=== PATIENT | female | born 1940 | race Caucasian/White ===

== ENCOUNTER → 2017-08-14 | Outpatient (CLI) | payer MEDICARE ==
[~2017-08-14] MED LIST: ASPI81TA94 PO; BUPR300T56 PO; BUSP15TA69 PO; CARV12.578 PO; MULT-1102 PO; NAPR-744 PO; OMEG-36 PO; OMEP-137 PO; TRAZ-156 PO
[2017-08-14 08:25] LABS: PLATELET COUNT, AUTOMATED 334 K/uL (150-450)
[2017-08-14 09:28] LABS: LDL CHOLESTEROL 77 mg/dl
== END ==
LOC: LAB 08:09
PROVIDERS: ATTEND Emergency Medicine
DX: I48.91 Unspecified atrial fibrillation (principal); E66.9 Obesity, unspecified
CPT/HCPCS: 36415; 82040; 82247; 82310; 82374; 82435; 82465; 82565; 82947; 83718; 84075; 84132; 84155; 84295; 84443; 84450; 84460; 84478; 84520; 85025

== ENCOUNTER → 2017-08-15 | Outpatient (CLI) | payer MEDICARE ==
--- NOTE | 2017-08-15 10:08 | RADIOLOGY IMAGING REPORT ---
FACILITY: [facility] PATIENT NAME: Nidia Kim : 1940 MR: [id number] V: [id number] EXAM DATE: ORDERING PHYSICIAN: CIRO STEPHEN TECHNOLOGIST: Location: [facility] [place] Patient: Nidia Kim : 1940 Visit/Account:[id number] Date of Sevice: 08/15/2017 BONE MINERAL DENSITY HISTORY: postmenopausal COMPARISON: None. FINDINGS: LUMBAR SPINE: Bone mineral density (BMD) measured from L1-L4 correlates with a Z-score of 1.1 and a T-score of 0.0 which is normal as defined by the World Health Organization. The corresponding risk of fracture in t he lumbar spine is not increased compared with a young adult reference population. HIP: Bone mineral density (BMD) measured in the left hip or femoral neck region correlates with a Z-score of 0.6 and a T-score of -0.9 which is normal as defined by the World Health Organization. The corre sponding risk of fracture in the hip is not increased compared with a young adult reference populatio n. Bone mineral density (BMD) measured in the left Femoral Neck region measures 0.911 g/cm2. IMPRESSION: 1. Lumbar spine: Normal. 2. Left Hip: Normal. 3. Left Femoral Neck: Bone Mineral Density is 0.911 g/cm2. FRAX? WHO Fracture Risk Assessment Tool link: <http://www.shef.ac.uk/FRAX/tool.jsp?locationValue=9> PLEASE NOTE: 1) The World Health Organization defines low BMD as follows: T-score Normal > -1 Osteopenia < -1 and > -2.5 Osteoporosis < -2.5 without fractures Established osteoporosis < -2.5 with fractures 2) In general, you may wish to consider: Diagnosis Treatment Follow-up DEXA Normal BMD Prevention 2-3 years Osteopenia Prevention/therapy 1-2 years Osteoporosis Therapy Yearly 3) Fracture risk estimated from the T-score is more accurate for vertebral fractures (often spontane ous) than for hip fractures. Report Dictated By: Kevin Olivares at 08/15/2017 10:02 AM Report E-Signed By: Kevin Olivares at 08/15/2017 10:03 AM WSN:JOSE LUIS
== END ==
LOC: CT 07:04
PROVIDERS: ATTEND Emergency Medicine
DX: I48.91 Unspecified atrial fibrillation (principal); Z78.0 Asymptomatic menopausal state
CPT/HCPCS: 77080

== ENCOUNTER → 2017-10-30 | Outpatient (CLI) | payer MEDICARE ==
[~2017-10-30] MED LIST changes: +ROSU20TA13 PO
--- NOTE | 2017-10-31 10:28 | RADIOLOGY IMAGING REPORT ---
FACILITY: [facility] [place] PATIENT NAME: EMELI PINEDA : [id number] MR: [id number] V: [id number] EXAM DATE: [id number] ORDERING PHYSICIAN: CIRO STEPHEN TECHNOLOGIST: Merna Bustillo PROCEDURE:BILATERAL DIGITAL SCREENING MAMMOGRAM WITH CAD ASSISTED INTERPRETATION & 3D TOMOSYNTHESIS COMPARISON:Prior mammograms 10/10/16, 10/18/15, 05/07/14, 05/06/13, 05/05/12. INDICATIONS:screening FINDINGS: There is prominent fatty replacement throughout the breasts. The parenchymal pattern has remained stable allowing for difference in mammographic technique & patient positioning. There is no evidence of malignant appearing mass, malignant appearing calcifications or other secondary sign of malignancy in either breast. DIAGNOSTIC CATEGORY 1--NEGATIVE. RECOMMENDATIONS: ROUTINE MAMMOGRAM AND CLINICAL EVALUATION. IMPRESSION: BIRADS 1: Negative No significant abnormality is seen. Dictated by: Francy Lalmas M.D. on 10/30/2017 at 16:15 Transcribed by: AVNI on 10/30/2017 at 16:19 Approved by: Francy Llamas M.D. on 10/31/2017 at 10:27 [facility]
== END ==
LOC: MAMO 01:19
PROVIDERS: ATTEND Emergency Medicine
DX: Z12.31 Encounter for screening mammogram for malignant neoplasm of breast (principal)
CPT/HCPCS: 77063; 77067

== ENCOUNTER 2017-11-08 05:28 | Emergency (ER) | payer MEDICARE ==
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
[2017-11-08] MEDS ORDERED: CETI-176 PO (05:38)
[2017-11-08] MEDS ORDERED: ASPIRIN 81 MG CHEW PO ONE (05:45)
[2017-11-08 06:00] LABS: PLATELET COUNT, AUTOMATED 271 K/uL (150-450)
--- NOTE | 2017-11-08 06:06 | EKG ---
FACILITY: [facility] - [place] PATIENT NAME: EMELI PINEDA : [id number] MR: [id number] V: [id number] EXAM DATE: ORDERING PHYSICIAN: CEDRICK PEDROZA TECHNOLOGIST: DALE Test Reason : CHEST HEAVYNESS - Blood Pressure : / mmHG Vent. Rate : 063 BPM Atrial Rate : 063 BPM P-R Int : 216 ms QRS Dur : 076 ms QT Int : 422 ms P-R-T Axes : 075 019 035 degrees QTc Int : 431 ms Sinus rhythm with 1st degree AV block Otherwise normal ECG No previous ECGs available Confirmed by JOBY RCAIG ([id number]) on 11/08/2017 1:03:04 PM Referred By: Confirmed By:JOBY CRAIG
--- NOTE | 2017-11-08 06:25 | RADIOLOGY IMAGING REPORT ---
FACILITY: [facility] [place] PATIENT NAME: Nidia Kim : 1940 MR: [id number] V: [id number] EXAM DATE: ORDERING PHYSICIAN: CEDRICK PERDOZA TECHNOLOGIST: [place] [facility] [place] : 1940 Visit/Account:[id number] Date of Sevice: 11/08/2017 SINGLE AP RADIOGRAPH OF THE CHEST 11/08/2017 6:03 AM. INDICATION: Atrial fibrillation, discomfort. COMPARISON: None. FINDINGS: Lungs are well-expanded. There is no consolidation. No pleural effusion or pneumothorax. Heart size i s normal. IMPRESSION: No acute abnormality. Report Dictated By: Antonio Medel MD at 11/08/2017 6:19 AM Report E-Signed By: Antonio Medel MD at 11/08/2017 6:20 AM WSN:[id number]
[2017-11-08 09:00] VITALS: BP 124/70
== END 2017-11-08 09:37 | disposition home or self-care (01) ==
LOC: ER 05:59
DX: R07.89 Other chest pain (principal); R06.00 Dyspnea, unspecified; I48.2 Chronic atrial fibrillation
CPT/HCPCS: 36415; 71045; 83880; 84484; 85025; 85379; 93005; 99284; A9270; 82040; 82247; 82310; 82374; 82435; 82565; 82947; 84075; 84132; 84155; 84295; 84450; 84460; 84520

== ENCOUNTER → 2017-11-15 | Outpatient (CLI) | payer MEDICARE ==
[~2017-11-15] MED LIST changes: +CETI-176 PO
== END ==
LOC: RESP 19:51
PROVIDERS: ATTEND Emergency Medicine
DX: G47.33 Obstructive sleep apnea (adult) (pediatric) (principal); G47.37 Central sleep apnea in conditions classified elsewhere; G47.36 Sleep related hypoventilation in conditions classified elsewhere; E66.9 Obesity, unspecified

== ENCOUNTER → 2017-11-28 | Outpatient (CLI) | payer MEDICARE ==
--- NOTE | 2017-11-29 17:27 | RADIOLOGY IMAGING REPORT ---
FACILITY: [facility] PATIENT NAME: EMELI PINEDA : [id number] MR: [id number] V: [id number] EXAM DATE: [id number] ORDERING PHYSICIAN: CIRO STEPHEN TECHNOLOGIST: Mara Francis RDMS(ABD,OBGYN,BR),RVT EXAMINATION:TWO-DIMENSIONAL ECHOCARDIOGRAPH REASON:CHEST PAIN 2D Measurements (normal values in centimeters) LV endLV endRV endVent.LV PostAorticLeftPercent DiastolicSystolicDiastolicSeptumWallRootAtriumShortening (3.5-5.7)(0.9-2.6)(0.6-1.1)(0.6-1.1)(2.0-3.7)(1.9-4.0)(25-35%) [id number]% STROKE VOLUME: 69ml ESTIMATED EJECTION FRACTION:64% LEFT VENTRICLE: Normal size & function, ejection fraction 60-65%. Normal diastolic function. RIGHT VENTRICLE: Normal size & function. RIGHT ATRIUM: Normal size. LEFT ATRIUM: Mildly dilated, no evidence of intra atrial shunting by Color flow Doppler. AORTIC VALVE: Trileaflet, no stenosis, mild aortic regurgitation. PULMONIC VALVE: Poorly visualized, no significant stenosis or regurgitation noted. MITRAL VALVE: Normal structure & function, trace regurgitation, no stenosis. TRICUSPID VALVE: Normal structure & function, trace regurgitation. RVSP estimated at 30mm Hg. PERICARDIUM: No evidence of pericardial effusion. EXTRACARDIAC SPACE: No evidence of pleural effusion. GREAT VESSELS: Aorta appears to be normal size with no dilation or aneurysm. OVERALL IMPRESSION: 1. Ejection fraction 60-65%. 2. Mild aortic regurgitation. 3. Contrast was used to enhance endocardial definition. Dictated by: Bo Caal M.D. on 11/28/2017 at 15:51 Transcribed by: JADEN on 11/29/2017 at 6:56 Approved by: Bo Caal M.D. on 11/29/2017 at 17:26 [facility]
== END ==
LOC: US 00:32
PROVIDERS: ATTEND Emergency Medicine
DX: I35.0 Nonrheumatic aortic (valve) stenosis (principal)
CPT/HCPCS: C8929; Q9957

== ENCOUNTER → 2017-12-10 | Outpatient (CLI) | payer MEDICARE ==
[~2017-12-10] MED LIST changes: +REGADENOSON 0.4 MG/5 ML SYR ONE
--- NOTE | 2017-12-10 16:41 | RADIOLOGY IMAGING REPORT ---
FACILITY: [facility] - [place] PATIENT NAME: Nidia Kim : 1940 MR: [id number] V: [id number] EXAM DATE: ORDERING PHYSICIAN: CIRO STEPHEN TECHNOLOGIST: Location: [facility] Patient: Nidia Kim : 1940 Visit/Account:[id number] Date of Sevice: 12/10/2017 EXAMINATION: Single isotope SPECT imaging with regadenoson infusion and gated SPECT imaging. DATE OF EXAMINATION: 12/10/2017. DATE OF INTERPRETATION: 12/10/2017. REQUESTING PHYSICIAN: CIRO STEPHEN. INDICATION: The patient is a 77-year-old female evaluated for chest pressure discomfort. PROCEDURE: After informed consent the patient received an intravenous injection of 12.1 mCi of Tc-99 m sestamibi followed at an appropriate time interval by rest imaging. The patient then subsequently received an intravenous infusion of 0.4 mg of regadenoson per protocol without complication. Resting heart rate was 83 bpm with a peak heart rate of 102 bpm. Blood pressure at rest was 132 / 85 and fo llowing infusion was 132 / 85. Baseline EKG demonstrates sinus rhythm with nonspecific ST-T wave jesús nges. There were no EKG changes of ischemia following infusion. Symptoms were nonspecific. The pat ient then received an intravenous injection of 28.7 mCi of Tc-99m sestamibi followed by stress imagin g. RAW DATA: Examination of the summed raw data revealed a adequate quality study. There is mild motion artifact present. There is breast attenuation present. MYOCARDIAL PERFUSION: The tomographic images demonstrate a large sized, mild intensity defect involv ing the mid to apical anterior wall and anteroseptal on rest imaging. With stress and prone imaging t his defect improves/resolves consistent with shifting breast attenuation. No transient ischemic dilat ion.. GATED IMAGES: The gated images demonstrate normal LV ejection fraction. LVEF greater than 70% with n ormal regional wall motion. IMPRESSION: 1. Nondiagnostic pharmacologic stress ECG 2. Probably normal myocardial perfusion scan with attenuation artifact. 3. Normal LV systolic function; LVEF greater than 70%. 4. Based on the results of this exam, the patient appears to be at low risk for near term cardiac bernardo nts. Intermediate long-term risk based on need for pharmacologic stress agent as opposed to exercise. Report Dictated By: Jose Miguel Claire at 12/10/2017 4:31 PM Report E-Signed By: Jose Miguel Claire at 12/10/2017 4:36 PM WSN:[id number]
== END ==
LOC: NUC 01:21
PROVIDERS: ATTEND Emergency Medicine
DX: R07.9 Chest pain, unspecified (principal)
CPT/HCPCS: 78452; 93017; A9500; J2785

== ENCOUNTER → 2017-12-12 | Outpatient (CLI) | payer MEDICARE ==
[~2017-12-12] MED LIST changes: +FLUO-177 PO; -REGADENOSON 0.4 MG/5 ML SYR ONE
--- NOTE | 2017-12-16 22:00 | RT HOLTER TEST ---
FACILITY: [facility] PATIENT NAME: EMELI PINEDA : [id number] MR: [id number] V: [id number] EXAM DATE: ORDERING PHYSICIAN: CIRO STEPHEN TECHNOLOGIST: Hook-up date: 2017-12-12 11:12:00 Duration: 47:59:00 Test Indications: chest pain Medications: diary not returned [id number] QRS complexes 5 Ventricular ectopics which represent <1 % of total QRS comp. 34 Supraventricular ectopics which represent <1 % of total QRS comp. * Paced QRS complexes which represent % of total QRS comp. VENTRICULAR ECTOPY 3 Isolated 0 Bigeminal Cycles 1 Couplets 0 Runs 0 Beats in Runs * Beats LONGEST at * BPM at :: -- * Beats FASTEST at * BPM at :: -- SUPRAVENTRICULAR ECTOPY 18 Isolated 5 Couplets 2 Runs 6 Beats in Runs 3 Beats LONGEST at 118 BPM at 12:34:42 2017-12-12 3 Beats FASTEST at 118 BPM at 12:34:42 2017-12-12 HEART RATES 50 MIN at 04:49:53 2017-12-13 63 AVG 87 MAX at 15:42:55 2017-12-13 LONGEST RR 1.480 secs at 05:48:44 2017-12-14 S-T LEVELS Channel 1 -12.800 mm MIN at 11:12:00 2017-12-12 -12.800 mm MAX at 11:12:00 2017-12-12 Channel 2 -12.800 mm MIN at 11:12:00 2017-12-12 -12.800 mm MAX at 11:12:00 2017-12-12 Channel 3 -12.800 mm MIN at 11:12:00 2017-12-12 -12.800 mm MAX at 11:12:00 2017-12-12 There were no reported symptoms during the test. She was predominantly in a sinus rhythm. She had rare supraventricular ectopy and had a 3 beat run at a rate of 118 beats per minute (bpm). There was very rare ventricula ectopy. Confirmed by OSORIO WHITEHEAD ([id number]) on 12/16/2017 9:59:51 PM Referred By: Overread By: OSORIO WHITEHEAD
== END ==
LOC: RESP 01:31
PROVIDERS: ATTEND Emergency Medicine
DX: R07.9 Chest pain, unspecified (principal)
CPT/HCPCS: 93225; 93226

== ENCOUNTER → 2018-10-23 | Outpatient (CLI) | payer MEDICARE ==
[~2018-10-23] MED LIST changes: -MULT-1102 PO; +MULT-1160 PO; +PNEU0.5D3 IM; -ROSU20TA13 PO; +ROSU20TA5 PO; -TRAZ-156 PO; +TRAZ50TA34 PO
[2018-10-23 08:44] LABS: PLATELET COUNT, AUTOMATED 275 K/uL (150-450)
[2018-10-23 10:03] LABS: LDL CHOLESTEROL 23 mg/dl
== END ==
LOC: LAB 08:21
PROVIDERS: ATTEND Emergency Medicine
DX: G47.33 Obstructive sleep apnea (adult) (pediatric) (principal); E66.9 Obesity, unspecified; F32.9 Major depressive disorder, single episode, unspecified; E78.5 Hyperlipidemia, unspecified; R73.9 Hyperglycemia, unspecified
CPT/HCPCS: 36415; 82040; 82247; 82310; 82374; 82435; 82465; 82565; 82947; 83036; 83718; 84075; 84132; 84155; 84295; 84450; 84460; 84478; 84520; 85025

== ENCOUNTER 2019-01-16 00:41 | Day surgery (SDC) | payer MEDICARE ==
[2019-01-16] VITALS (7 sets, daily range): BP systolic 109–144; BP diastolic 67–85
[~2019-01-16] VITALS: Ht 152.4 cm; Wt 84.8 kg
[~2019-01-16 00:41] MED LIST changes: +OXYGENHOME INH; -TRAZ50TA34 PO; +TRAZ50TA52 PO
[2019-01-16] MEDS ORDERED: PROPOFOL EMUL(*) 10MG/ML 20 ML 20 ML ONE (07:08)
[2019-01-16] MEDS ORDERED: LIDOCAINE/SOD BICARB 8.4% SYR ID ONE (09:20)
[2019-01-16] MEDS ORDERED: NORMOSOL R SOLN(*) 1000 ML BAG 1,000 ML IV PRN (09:20)
--- NOTE | 2019-01-16 10:53 | Short(Outpt) Discharge Summary ---
Discharge Summary Reason for Hosp/Final Diag: (1) Positive colorectal cancer screening using Cologuard test Hospital Course & Plan: pt presented for colonoscopy. she tolerated the procedure well and will be discharged home when criteria met. Departure Discharge to: Home Discharge Instructions Home Meds Active Scripts Rosuvastatin Calcium (Rosuvastatin Calcium) 20 Mg Tablet, 1 TAB PO DAILY, #90 TAB 3 Refills Prov:CIRO STEPHEN MD 10/29/18 Carvedilol (CARVEDILOL) 12.5 Mg Tablet, 1 TAB PO BID, #180 TAB 3 Refills Prov:CIRO STEPHEN MD 10/29/18 Bupropion Hcl (BUPROPION XL) 300 Mg Tab.er.24h, 300 MG PO QDAY, #90 TAB 3 Refills Prov:CIRO STEPHEN MD 10/29/18 Fluoxetine Hcl (FLUOXETINE HCL) 20 Mg Capsule, 20 MG PO QDAY, #90 CAPSULE 3 Refills Prov:CIRO STEPHEN MD 10/29/18 Trazodone Hcl (TRAZODONE HCL) 50 Mg Tablet, 1 TAB PO QHS, #90 TAB 3 Refills Prov:CIRO STEPHEN MD 10/14/18 Omeprazole (OMEPRAZOLE) 20 Mg Tablet.dr, 1 TAB PO DAILY, #90 TAB 3 Refills Prov:CIRO STEPHEN MD 08/12/18 Reported Medications Oxygen (OXYGEN) Inha, 2 L INH QHS, L 01/12/19 Cetirizine Hcl (ZYRTEC) 10 Mg Tablet, 10 MG PO QDAY, TAB 11/08/17 Multivit With Calcium,Iron,Min (ONE DAILY WOMEN'S) 1 Each Tablet, 1 TAB PO DAILY 08/13/17 Naproxen (NAPROXEN) 250 Mg Tablet, 250 MG PO PRN, TAB 08/13/17 Aspirin (ASPIRIN) 81 Mg Tab.chew, 1 TAB PO DAILY, TAB.CHEW 08/13/17 [place]-3 Fatty Acids/Fish Oil (OMEGA 3 FISH OIL SOFTGEL) 1 Each Capsule.dr, 1 EACH PO QDAY 08/13/17 Discontinued Scripts Buspirone Hcl (BUSPIRONE HCL) 15 Mg Tablet, 1 TAB PO BID, #90 TAB 1 Refill Prov:CIRO STEPHEN MD 10/14/17 Diet: Regular Activity: As Tolerated Special Instructions: repeat colonoscopy prn RANJANA GARCIA Jan 16, 2019 10:53
== END 2019-01-16 12:00 | disposition home or self-care (01) ==
LOC: OR 00:41
PROVIDERS: ATTEND Surgery
DX: K57.30 Diverticulosis of large intestine without perforation or abscess without bleeding (principal)
CPT/HCPCS: 00811; 45378; J2704